=== PATIENT | female | born 1980 | race Caucasian/White ===

== ENCOUNTER 2021-12-07 14:19 | Emergency (ER) | payer MEDICAID ==
[~2021-12-07] VITALS: Ht 154.9 cm; Wt 86.4 kg
[2021-12-07 14:24] VITALS: BP 130/94
== END 2021-12-07 18:17 | disposition left against medical advice (07) ==
LOC: ER 14:20
DX: M79.605 Pain in left leg (principal); Z53.21 Procedure and treatment not carried out due to patient leaving prior to being seen by health care provider

== ENCOUNTER 2021-12-07 18:45 | Emergency (ER) | payer MEDICAID ==
[~2021-12-07] VITALS: Ht 154.9 cm; Wt 81.8 kg
--- NOTE | 2021-12-07 19:28 | NUR ---
ADVISED DR ALVAREZ OF PT PRESENTATION WITH REDNESS/LUMP/PAIN UP HER LEG AND HE ASKED FOR A VERBAL ORDER FOR A VASCULAR US WELL BASIC LAB WORK OF [facility] AND CMP
[2021-12-07 20:06] LABS: HEMOGLOBIN 12.4 g/dl (12.0-16.0); NEUTROPHILS # (AUTO) 6.9 X10'3 (1.8-7.7); PLATELET COUNT 545 X10'3 (140-440)
[2021-12-07 20:08] LABS: BASOPHILS % (AUTO) 0.1 % (0-1); EOSINOPHILS # (AUTO) 0.1 X10'3 (0-0.9); EOSINOPHILS % (AUTO) 1.2 % (0-6); LYMPHOCYTES # (AUTO) 2.9 X10'3 (1.1-4.8); LYMPHOCYTES % (AUTO) 25.8 % (21-51); MEAN CORPUSCULAR HEMOGLOBIN 27.7 PG (27.0-31.0); MEAN CORPUSCULAR HGB CONC 32.7 g/dL (33.0-36.5); MEAN CORPUSCULAR VOLUME 84.8 FL (78-98); MEAN PLATELET VOLUME 7.4 FL (7.4-10.4); MONOCYTES # (AUTO) 1.3 X10'3 (0-0.9); MONOCYTES % (AUTO) 11.6 % (2-12); NEUTROPHILS % (AUTO) 61.3 % (42-75); RED BLOOD COUNT 4.48 X10'6 (4.20-5.60); RED CELL DISTRIBUTION WIDTH 19.4 % (11.5-14.5); WHITE BLOOD COUNT 11.2 X10'3 (4.5-11.0)
[2021-12-07 20:21] LABS: ALANINE AMINOTRANSFERASE 32 U/L (12-78); ALBUMIN 3.1 G/DL (3.4-5.0); ALBUMIN/GLOBULIN RATIO 0.6 (1.1-1.5); ALKALINE PHOSPHATASE 127 IU/L (46-116); ANION GAP 7 (8-16); ASPARTATE AMINO TRANSFERASE 21 U/L (10-37); BILIRUBIN,TOTAL 0.4 MG/DL (0.1-1.0); BLOOD UREA NITROGEN 15 MG/DL (7-18); BUN/CREATININE RATIO 17.9 (6.6-38.0); CALCIUM 9.2 MG/DL (8.5-10.1); CHLORIDE 105 MMOL/L (99-107); CREATININE 0.84 MG/DL (0.40-0.90); GLUCOSE 84 MG/DL (70-104); POTASSIUM 4.4 MMOL/L (3.5-5.1); SODIUM 141 MMOL/L (135-145); TOTAL CARBON DIOXIDE 29.4 MMOL/L (24-32); TOTAL PROTEIN 7.9 G/DL (6.4-8.2); eGFR 75 ML/MIN
[2021-12-07] MEDS ORDERED: acetaminophen 325mg tablet PO ONE (20:55)
[2021-12-07] MEDS ORDERED: aspirin 325mg tablet PO ONE (22:05)
[2021-12-07 22:27] VITALS: BP 107/76
[2021-12-08 02:41] LABS: ANISOCYTOSIS 2+; PLATELET ESTIMATE INCREASED
[2021-12-08 02:43] LABS: POLYCHROMASIA FEW
[2021-12-08 02:44] LABS: LARGE PLATELETS FEW; STOMATOCYTES FEW
== END 2021-12-07 22:34 | disposition home or self-care (01) ==
LOC: ER 18:46
DX: O90.9 Complication of the puerperium, unspecified (principal); I80.02 Phlebitis and thrombophlebitis of superficial vessels of left lower extremity; G43.909 Migraine, unspecified, not intractable, without status migrainosus; Z79.2 Long term (current) use of antibiotics
CPT/HCPCS: 36415; 80053; 85008; 85025; 93971; 99284

== ENCOUNTER 2024-05-09 11:52 | Emergency (ER) | payer MEDICAID | END 2024-05-09 12:02 | disposition left against medical advice (07) | LOC: ER 11:53 | DX: M25.519 Pain in unspecified shoulder (principal); Z79.1 Long term (current) use of non-steroidal anti-inflammatories (NSAID); Z53.21 Procedure and treatment not carried out due to patient leaving prior to being seen by health care provider ==

== ENCOUNTER 2024-08-02 16:04 | Emergency (ER) | payer MEDICAID ==
[~2024-08-02] VITALS: Ht 154.9 cm; Wt 81.8 kg
[2024-08-02 16:06] VITALS: BP 141/89; PULSE 90; RESP 19; O2SAT 95
[2024-08-02] MEDS ORDERED: NIRM1TAB9 PO (18:32)
[2024-08-02] MEDS ORDERED: PRED20TA PO (18:32)
[2024-08-02] MEDS ORDERED: IBUP-1984 PO (18:32)
[2024-08-02 19:23] VITALS: TEMP 98.2
== END 2024-08-02 19:24 | disposition home or self-care (01) ==
LOC: ER 16:04
DX: U07.1 COVID-19 (principal); Z88.1 Allergy status to other antibiotic agents
CPT/HCPCS: 36415; 87502; 87503; 87811; 99283